=== PATIENT | male | born 1970 | race African-American/Black ===

== ENCOUNTER 2021-12-05 20:41 | Inpatient (IN) ==
[2021-12-05 21:27] LABS: Basophils % 0.3 % (0.0-0.8); Eosinophils # 0.3 10*3/uL (0.0-0.87); Eosinophils % 4.1 % (0.00-10.9); Hematocrit 40.2 VOL% (42.0-52.0); Hemoglobin 13.4 GM/DL (14.0-18.0); Immature Granulocytes % 0.5 %; Immature Granulocytes Absolute 0.04 #; Lymphocytes # 1.5 10*3/uL (1.4-4.0); Lymphocytes % 20.6 % (21.2-54.2); Mean Corpuscular HGB Conc 33.3 GM/DL (32-36); Mean Corpuscular Volume 100.8 FL (87-102); Mean Platelet Volume 10.2 FL (9.6-12.0); Monocytes % 14.7 % (1.7-12.7); Neutrophils % 59.8 % (38.7-73.9); Platelet Count 276 T/CUMM (130-400); Red Blood Count 3.99 MC/CUMM (3.8-5.5); Red Cell Distribution Width 13.6 % (9.3-17.3); White Blood Count 7.5 T/CUMM (4-12)
[2021-12-05 21:43] LABS: Alanine Aminotransferase 26 U/L (16-61); Albumin 2.4 G/DL (3.4-5.0); Alkaline Phosphatase 90 U/L (45-117); Aspartate Amino Transferase 26 U/L (0-37); Bilirubin,Total < 0.39 MG/DL (0.20-1.00); Blood Urea Nitrogen 17 MG/DL (7-18); Calcium 8.7 MG/DL (8.5-10.1); Carbon Dioxide 30 MMOL/L (21-32); Estimated Glom Filtration Rate 94 ML/MIN; Glucose 99 MG/DL (74-106); Potassium 3.6 MMOL/L (3.5-5.1); Sodium 136 MMOL/L (136-145); Total Protein 8.6 G/DL (6.4-8.2)
[2021-12-05] MEDS ORDERED: CLINDAMYCIN INJ 600 MG/50 ML PREMIX IV STA (22:20)
[2021-12-05] MEDS ORDERED: ENOXAPARIN 40 MG/0.4 ML SYRINGE SUBCUT ONE (23:30)
[2021-12-05] MEDS ORDERED: hydrALAZINE 20 MG/1 ML VIAL IV PRN (23:31)
[2021-12-06] MEDS: MORPHINE 4 MG/1 ML VIAL IV PRN (03:06)
[2021-12-06] MEDS: CLINDAMYCIN INJ 600 MG/50 ML PREMIX IV SCH ×4 (03:07→21:18)
[2021-12-06 07:03] LABS: Basophils % 0.3 % (0.0-0.8); Eosinophils # 0.3 10*3/uL (0.0-0.87); Eosinophils % 4.6 % (0.00-10.9); Hematocrit 38.9 VOL% (42.0-52.0); Hemoglobin 13.1 GM/DL (14.0-18.0); Immature Granulocytes % 0.7 %; Immature Granulocytes Absolute 0.05 #; Lymphocytes # 1.4 10*3/uL (1.4-4.0); Lymphocytes % 20.2 % (21.2-54.2); Mean Corpuscular HGB Conc 33.7 GM/DL (32-36); Mean Platelet Volume 10.4 FL (9.6-12.0); Monocytes % 14.4 % (1.7-12.7); Neutrophils % 59.8 % (38.7-73.9); Platelet Count 278 T/CUMM (130-400); Red Blood Count 3.93 MC/CUMM (3.8-5.5); Red Cell Distribution Width 13.4 % (9.3-17.3); White Blood Count 6.7 T/CUMM (4-12)
[2021-12-06 07:31] LABS: Calcium 8.8 MG/DL (8.5-10.1); Osmolality,Calculated 270.1 MOS/KG (273-304); Potassium 3.3 MMOL/L (3.5-5.1)
[2021-12-06] MEDS ORDERED: traMADol 50 MG TABLET PO PRN (15:58)
[2021-12-06] MEDS ORDERED: POTASSIUM CHLORIDE 20 MEQ TABLET PO PRN (16:03)
[2021-12-06] MEDS: ENOXAPARIN 40 MG/0.4 ML SYRINGE SUBCUT SCH (21:18)
[2021-12-07] MEDS: CLINDAMYCIN INJ 600 MG/50 ML PREMIX IV SCH ×4 (03:54→21:45)
[2021-12-07] MEDS: MORPHINE 4 MG/1 ML VIAL IV PRN ×4 (04:05→21:45)
[2021-12-07 07:25] LABS: Potassium 3.7 MMOL/L (3.5-5.1)
[2021-12-07] MEDS ORDERED: traMADol 50 MG TABLET PO PRN (10:41)
[2021-12-07] MEDS: ENOXAPARIN 40 MG/0.4 ML SYRINGE SUBCUT SCH (21:45)
[2021-12-08] MEDS: CLINDAMYCIN INJ 600 MG/50 ML PREMIX IV SCH (04:31)
[2021-12-08 12:07] VITALS: BP 148/79
== END 2021-12-08 13:23 | disposition home or self-care (01) | DRG 603 ==
LOC: EDBD → EDUNIT# → N.ED 20:41 → N.5E 23:14 → SUATTDRO 23:14 → N.5E 12-06 02:42
PROVIDERS: ADMIT Internal Medicine; ATTEND Internal Medicine Geriatric Medicine

== ENCOUNTER 2022-01-08 14:35 | Inpatient (IN) ==
[2022-01-08] MEDS ORDERED: SODIUM CHLORIDE 0.9% 1,000 ML IV STA (15:53)
[2022-01-08 16:31] LABS: Basophils % 0.2 % (0.0-0.8); Eosinophils # 0.3 10*3/uL (0.0-0.87); Eosinophils % 1.8 % (0.00-10.9); Hematocrit 42.2 VOL% (42.0-52.0); Hemoglobin 13.9 GM/DL (14.0-18.0); Immature Granulocytes % 0.9 %; Immature Granulocytes Absolute 0.13 #; Lymphocytes # 1.1 10*3/uL (1.4-4.0); Lymphocytes % 7.2 % (21.2-54.2); Mean Corpuscular HGB Conc 32.9 GM/DL (32-36); Mean Platelet Volume 10.1 FL (9.6-12.0); Monocytes % 7.5 % (1.7-12.7); Neutrophils % 82.4 % (38.7-73.9); Platelet Count 239 T/CUMM (130-400); Red Blood Count 4.22 MC/CUMM (3.8-5.5); Red Cell Distribution Width 16.4 % (9.3-17.3); White Blood Count 15.2 T/CUMM (4-12)
[2022-01-08 16:43] LABS: Albumin 2.6 G/DL (3.4-5.0); Bilirubin,Total 0.9 MG/DL (0.20-1.00); Calcium 9.2 MG/DL (8.5-10.1); Osmolality,Calculated 263.4 MOS/KG (273-304); Potassium 3.9 MMOL/L (3.5-5.1); Total Protein 9.2 G/DL (6.4-8.2)
[2022-01-08] MEDS ORDERED: VANCOMYCIN INJ 1,000 MG in SODIUM CHLORIDE 0.9% 250 ML IV STA (17:04)
[2022-01-08] MEDS ORDERED: PIPERACILLIN/TAZOBACTAM 3,375 MG in SODIUM CHLORIDE 0.9% 100 ML IV STA (17:04)
[2022-01-08] MEDS ORDERED: SODIUM CHLORIDE 0.9% 250 ML IV ONE (17:52)
[2022-01-08] MEDS ORDERED: MAGNESIUM SULF RIDER 1 GM/100 ML PREMIX IV STA (17:58)
[2022-01-08] MEDS ORDERED: MAGNESIUM SULF RIDER 2 GM/50 ML PREMIX IV ONE (17:59)
[2022-01-08] MEDS ORDERED: GLUCAGON 1 MG VIAL IM PRN (18:36)
[2022-01-08] MEDS ORDERED: ONDANSETRON 4 MG/2 ML VIAL IV PRN (18:36)
[2022-01-08] MEDS ORDERED: DEXTROSE 10% 250 ML BAG IV PRN (18:44)
[2022-01-08] MEDS: SODIUM CHLORIDE 0.9% 1,000 ML IV SCH (20:20)
[2022-01-08] MEDS: ENOXAPARIN 40 MG/0.4 ML SYRINGE SUBCUT SCH (20:21)
[2022-01-08] MEDS: MORPHINE 2 MG/1 ML SYRINGE IV PRN (23:49)
[2022-01-09] MEDS: PIPERACILLIN/TAZOBACTAM 3,375 MG in SODIUM CHLORIDE 0.9% 100 ML IV SCH ×3 (01:03→18:47)
[2022-01-09] MEDS: SODIUM CHLORIDE 0.9% 1,000 ML IV SCH ×2 (03:50→15:00)
[2022-01-09] MEDS ORDERED: POTASSIUM CHLORIDE 20 MEQ TABLET PO ONE (04:14)
[2022-01-09 04:55] LABS: Basophils % 0.1 % (0.0-0.8); Eosinophils # 0.4 10*3/uL (0.0-0.87); Hematocrit 36.2 VOL% (42.0-52.0); Hemoglobin 11.9 GM/DL (14.0-18.0); Immature Granulocytes % 0.7 %; Immature Granulocytes Absolute 0.08 #; Lymphocytes # 1.7 10*3/uL (1.4-4.0); Lymphocytes % 14.1 % (21.2-54.2); Mean Corpuscular HGB Conc 32.9 GM/DL (32-36); Mean Corpuscular Volume 100.3 FL (87-102); Monocytes % 9.5 % (1.7-12.7); Neutrophils % 72.6 % (38.7-73.9); Platelet Count 219 T/CUMM (130-400); Red Blood Count 3.61 MC/CUMM (3.8-5.5); Red Cell Distribution Width 16.3 % (9.3-17.3); White Blood Count 12.1 T/CUMM (4-12)
[2022-01-09 05:13] LABS: Calcium 8.3 MG/DL (8.5-10.1); Osmolality,Calculated 267.1 MOS/KG (273-304); Potassium 3.9 MMOL/L (3.5-5.1)
[2022-01-09] MEDS: VANCOMYCIN INJ 1,000 MG in SODIUM CHLORIDE 0.9% 250 ML IV SCH ×2 (05:37→17:50)
[2022-01-09 07:05] LABS: Barbiturates Screen,Urine Negative (Negative); Benzodiazepines Screen,Urine Negative (Negative); Cannabinoid Screen,Urine Negative (Negative); Opiate Screen,Urine Positive (Negative); Phencyclidine Screen,Urine Negative (Negative)
[2022-01-09] MEDS: PANTOPRAZOLE 40 MG TABLET PO SCH (08:24)
[2022-01-09] MEDS: MORPHINE 2 MG/1 ML SYRINGE IV PRN ×3 (08:24→21:02)
[2022-01-09] MEDS ORDERED: METOPROLOL TARTRATE 25 MG TABLET PO SCH (11:00)
[2022-01-09] MEDS: ENOXAPARIN 40 MG/0.4 ML SYRINGE SUBCUT SCH (18:50)
[2022-01-09] MEDS: carvediloL 3.125 MG TABLET PO SCH (20:59)
[2022-01-10] MEDS: MORPHINE 2 MG/1 ML SYRINGE IV PRN ×4 (01:30→21:27)
[2022-01-10] MEDS: PIPERACILLIN/TAZOBACTAM 3,375 MG in SODIUM CHLORIDE 0.9% 100 ML IV SCH ×3 (01:37→19:16)
[2022-01-10 05:31] LABS: Basophils % 0.3 % (0.0-0.8); Eosinophils # 0.5 10*3/uL (0.0-0.87); Eosinophils % 4.9 % (0.00-10.9); Hematocrit 36.2 VOL% (42.0-52.0); Hemoglobin 11.8 GM/DL (14.0-18.0); Immature Granulocytes % 0.5 %; Immature Granulocytes Absolute 0.05 #; Lymphocytes # 1.9 10*3/uL (1.4-4.0); Lymphocytes % 18.2 % (21.2-54.2); Mean Corpuscular HGB Conc 32.6 GM/DL (32-36); Mean Corpuscular Volume 99.7 FL (87-102); Mean Platelet Volume 9.9 FL (9.6-12.0); Monocytes % 8.6 % (1.7-12.7); Neutrophils % 67.5 % (38.7-73.9); Platelet Count 233 T/CUMM (130-400); Red Blood Count 3.63 MC/CUMM (3.8-5.5); Red Cell Distribution Width 16.1 % (9.3-17.3); White Blood Count 10.3 T/CUMM (4-12)
[2022-01-10 05:49] LABS: Calcium 8.6 MG/DL (8.5-10.1); Osmolality,Calculated 268.1 MOS/KG (273-304); Potassium 3.9 MMOL/L (3.5-5.1)
[2022-01-10] MEDS: VANCOMYCIN INJ 1,000 MG in SODIUM CHLORIDE 0.9% 250 ML IV SCH ×2 (06:09→18:26)
[2022-01-10] MEDS: SODIUM CHLORIDE 0.9% 1,000 ML IV SCH ×4 (06:09→19:15)
[2022-01-10] MEDS: carvediloL 3.125 MG TABLET PO SCH ×2 (08:01→21:17)
[2022-01-10] MEDS: PANTOPRAZOLE 40 MG TABLET PO SCH (08:01)
[2022-01-10 13:11] LABS: % CD4 (T Cells) 27 % (32-64); % CD8 (T Cells) 56 % (13-40); 4/8 Ratio 0.5 (>=0.9)
[2022-01-10] MEDS: ENOXAPARIN 40 MG/0.4 ML SYRINGE SUBCUT SCH (19:16)
[2022-01-11] MEDS: MORPHINE 2 MG/1 ML SYRINGE IV PRN ×4 (01:16→21:25)
[2022-01-11] MEDS ORDERED: POTASSIUM CHLORIDE 20 MEQ TABLET PO ONE (01:58)
[2022-01-11] MEDS: PIPERACILLIN/TAZOBACTAM 3,375 MG in SODIUM CHLORIDE 0.9% 100 ML IV SCH ×3 (04:30→21:24)
[2022-01-11] MEDS: VANCOMYCIN INJ 1,000 MG in SODIUM CHLORIDE 0.9% 250 ML IV SCH ×2 (07:00→18:30)
[2022-01-11 07:12] LABS: Basophils % 0.5 % (0.0-0.8); Eosinophils # 0.5 10*3/uL (0.0-0.87); Eosinophils % 5.9 % (0.00-10.9); Hematocrit 37.5 VOL% (42.0-52.0); Hemoglobin 11.9 GM/DL (14.0-18.0); Immature Granulocytes % 0.5 %; Immature Granulocytes Absolute 0.04 #; Lymphocytes # 1.8 10*3/uL (1.4-4.0); Lymphocytes % 23.2 % (21.2-54.2); Mean Corpuscular HGB Conc 31.7 GM/DL (32-36); Monocytes % 11.1 % (1.7-12.7); Neutrophils % 58.8 % (38.7-73.9); Platelet Count 270 T/CUMM (130-400); Red Blood Count 3.64 MC/CUMM (3.8-5.5); Red Cell Distribution Width 16.1 % (9.3-17.3); White Blood Count 7.7 T/CUMM (4-12)
[2022-01-11 07:33] LABS: Calcium 9.1 MG/DL (8.5-10.1); Osmolality,Calculated 265.2 MOS/KG (273-304); Potassium 4.4 MMOL/L (3.5-5.1)
[2022-01-11] MEDS: carvediloL 3.125 MG TABLET PO SCH ×2 (09:49→21:24)
[2022-01-11] MEDS: PANTOPRAZOLE 40 MG TABLET PO SCH (09:49)
[2022-01-11] MEDS: ENOXAPARIN 40 MG/0.4 ML SYRINGE SUBCUT SCH (18:30)
[2022-01-11] MEDS: SODIUM CHLORIDE 0.9% 1,000 ML IV SCH (18:31)
[2022-01-12] MEDS: MORPHINE 2 MG/1 ML SYRINGE IV PRN ×2 (04:05→11:16)
[2022-01-12 05:06] LABS: Basophils % 0.6 % (0.0-0.8); Eosinophils # 0.5 10*3/uL (0.0-0.87); Eosinophils % 7.9 % (0.00-10.9); Hematocrit 38.1 VOL% (42.0-52.0); Hemoglobin 12.5 GM/DL (14.0-18.0); Immature Granulocytes % 0.7 %; Immature Granulocytes Absolute 0.05 #; Lymphocytes # 1.7 10*3/uL (1.4-4.0); Lymphocytes % 25.3 % (21.2-54.2); Mean Corpuscular HGB Conc 32.8 GM/DL (32-36); Mean Corpuscular Volume 98.7 FL (87-102); Mean Platelet Volume 9.9 FL (9.6-12.0); Monocytes % 11.4 % (1.7-12.7); Neutrophils % 54.1 % (38.7-73.9); Platelet Count 305 T/CUMM (130-400); Red Blood Count 3.86 MC/CUMM (3.8-5.5); Red Cell Distribution Width 15.5 % (9.3-17.3); White Blood Count 6.9 T/CUMM (4-12)
[2022-01-12 05:22] LABS: Calcium 8.6 MG/DL (8.5-10.1); Potassium 4.3 MMOL/L (3.5-5.1)
[2022-01-12] MEDS: VANCOMYCIN INJ 1,000 MG in SODIUM CHLORIDE 0.9% 250 ML IV SCH ×2 (06:07→20:27)
[2022-01-12] MEDS: carvediloL 12.5 MG TABLET PO SCH ×2 (10:01→20:28)
[2022-01-12] MEDS: PANTOPRAZOLE 40 MG TABLET PO SCH (10:01)
[2022-01-12] MEDS: SODIUM CHLORIDE 0.9% 1,000 ML IV SCH (12:24)
[2022-01-12] MEDS: AMIODARONE 200 MG TABLET PO SCH ×2 (15:03→20:28)
[2022-01-12] MEDS: PIPERACILLIN/TAZOBACTAM 3,375 MG in SODIUM CHLORIDE 0.9% 100 ML IV SCH ×3 (15:19→22:50)
[2022-01-12] MEDS: ENOXAPARIN 40 MG/0.4 ML SYRINGE SUBCUT SCH (20:28)
[2022-01-12] MEDS: traMADol 50 MG TABLET PO PRN (20:28)
[2022-01-13 04:53] LABS: Basophils % 0.4 % (0.0-0.8); Eosinophils # 0.6 10*3/uL (0.0-0.87); Eosinophils % 8.8 % (0.00-10.9); Hematocrit 37.6 VOL% (42.0-52.0); Hemoglobin 12.4 GM/DL (14.0-18.0); Immature Granulocytes % 0.7 %; Immature Granulocytes Absolute 0.05 #; Lymphocytes # 1.9 10*3/uL (1.4-4.0); Lymphocytes % 27.8 % (21.2-54.2); Mean Corpuscular Volume 98.9 FL (87-102); Mean Platelet Volume 10.1 FL (9.6-12.0); Monocytes % 10.3 % (1.7-12.7); Platelet Count 331 T/CUMM (130-400); Red Cell Distribution Width 15.5 % (9.3-17.3); White Blood Count 6.8 T/CUMM (4-12)
[2022-01-13 05:12] LABS: Calcium 9.2 MG/DL (8.5-10.1); Osmolality,Calculated 266.4 MOS/KG (273-304); Potassium 4.3 MMOL/L (3.5-5.1)
[2022-01-13] MEDS: VANCOMYCIN INJ 1,000 MG in SODIUM CHLORIDE 0.9% 250 ML IV SCH ×2 (05:26→18:09)
[2022-01-13] MEDS: SODIUM CHLORIDE 0.9% 1,000 ML IV SCH ×3 (05:26→20:35)
[2022-01-13] MEDS: PIPERACILLIN/TAZOBACTAM 3,375 MG in SODIUM CHLORIDE 0.9% 100 ML IV SCH ×3 (06:39→21:45)
[2022-01-13] MEDS ORDERED: REGADENOSON 0.4 MG/5 ML SYRINGE IV ONE (08:00)
[2022-01-13] MEDS ORDERED: diphenhydrAMINE CAP 50 MG CAPSULE PO ONE (08:48)
[2022-01-13] MEDS ORDERED: POTASSIUM CHLORIDE RIDER 10 MEQ/100 ML PREMIX IV PRN (08:48)
[2022-01-13] MEDS ORDERED: MAGNESIUM SULF RIDER 2 GM/50 ML PREMIX IV PRN (08:48)
[2022-01-13] MEDS ORDERED: DIAZEPAM 5 MG TABLET PO ONE (08:48)
[2022-01-13] MEDS: carvediloL 12.5 MG TABLET PO SCH ×2 (09:25→20:53)
[2022-01-13] MEDS: AMIODARONE 200 MG TABLET PO SCH ×2 (09:25→20:53)
[2022-01-13] MEDS: PANTOPRAZOLE 40 MG TABLET PO SCH (09:25)
[2022-01-13] MEDS ORDERED: HEPARIN/NACL 0.9% 2 UNITS/ML 3,000 UNIT/1,500 ML BAG IV ONE (09:43)
[2022-01-13] MEDS ORDERED: MIDAZOLAM 2 MG/2 ML VIAL ONE (10:14)
[2022-01-13] MEDS ORDERED: fentaNYL 100 MCG/2 ML VIAL ONE (10:14)
[2022-01-13] MEDS: traMADol 50 MG TABLET PO PRN (18:10)
[2022-01-14] MEDS: traMADol 50 MG TABLET PO PRN (00:22)
[2022-01-14] MEDS: SODIUM CHLORIDE 0.9% 1,000 ML IV SCH ×2 (01:10→06:18)
[2022-01-14 04:58] LABS: Basophils % 0.6 % (0.0-0.8); Eosinophils # 0.5 10*3/uL (0.0-0.87); Eosinophils % 7.5 % (0.00-10.9); Hematocrit 38.5 VOL% (42.0-52.0); Hemoglobin 12.8 GM/DL (14.0-18.0); Immature Granulocytes % 0.9 %; Immature Granulocytes Absolute 0.06 #; Lymphocytes # 1.6 10*3/uL (1.4-4.0); Lymphocytes % 23.6 % (21.2-54.2); Mean Corpuscular HGB Conc 33.2 GM/DL (32-36); Mean Corpuscular Volume 98.5 FL (87-102); Mean Platelet Volume 9.6 FL (9.6-12.0); Monocytes % 9.8 % (1.7-12.7); Neutrophils % 57.6 % (38.7-73.9); Platelet Count 366 T/CUMM (130-400); Red Blood Count 3.91 MC/CUMM (3.8-5.5); Red Cell Distribution Width 15.7 % (9.3-17.3); White Blood Count 6.8 T/CUMM (4-12)
[2022-01-14 05:14] LABS: Calcium 9.1 MG/DL (8.5-10.1); Osmolality,Calculated 267.2 MOS/KG (273-304); Potassium 4.2 MMOL/L (3.5-5.1)
[2022-01-14] MEDS: VANCOMYCIN INJ 1,000 MG in SODIUM CHLORIDE 0.9% 250 ML IV SCH (05:52)
[2022-01-14] MEDS ORDERED: cefTRIAXone 1,000 MG in SODIUM CHLORIDE 0.9% 100 ML IV SCH (09:00)
[2022-01-14] MEDS: carvediloL 12.5 MG TABLET PO SCH (10:40)
[2022-01-14] MEDS: AMIODARONE 200 MG TABLET PO SCH (10:40)
[2022-01-14] MEDS: PANTOPRAZOLE 40 MG TABLET PO SCH (10:40)
[2022-01-14] MEDS: PIPERACILLIN/TAZOBACTAM 3,375 MG in SODIUM CHLORIDE 0.9% 100 ML IV SCH (11:11)
[2022-01-14] MEDS ORDERED: CLOTRIMAZOLE 1% CREAM 15 GM TUBE TOP SCH (11:30)
[2022-01-14] MEDS ORDERED: SKIN HEALING OINT (AQUAPHOR) 50 GM TUBE TOP SCH (11:30)
[2022-01-14 12:20] VITALS: BP 113/66
== END 2022-01-14 14:45 | disposition home or self-care (01) | DRG 603 ==
LOC: N.ED 14:35 → SUATTDRO 18:36 → N.TELEN 18:36
PROVIDERS: ADMIT Internal Medicine; ATTEND Internal Medicine
PROC: CLCCHCL (ICD-10-PCS; 2022-01-13 09:45)